=== PATIENT | female | born 1945 | race Caucasian/White ===

== ENCOUNTER 2017-09-19 13:06 | Outpatient (CLI) | payer MEDICARE | END 2017-09-19 13:07 | disposition home or self-care (01) | LOC: BICMAMMO 13:06 | PROVIDERS: ATTEND Family Medicine | DX: Z12.31 Encounter for screening mammogram for malignant neoplasm of breast (principal); Z78.0 Asymptomatic menopausal state; M85.80 Other specified disorders of bone density and structure, unspecified site; Z85.528 Personal history of other malignant neoplasm of kidney | CPT/HCPCS: 77063; 77067; 77080 ==